=== PATIENT | male | born 1960 ===

== ENCOUNTER → 2018-12-14 21:48 | Outpatient (REF) | payer BC, SELFPAY ==
[2018-12-14 23:39] LABS: HIV 1 and 2 Antibody NEGATIVE (NEGATIVE)
[2018-12-14 23:50] LABS: Urine N gonorrhoeae NOT DETECTED
[2018-12-14 23:52] LABS: Urine Chlamydia NOT DETECTED
[2018-12-15 00:16] LABS: Hep C Virus Ab w/Reflex Quant NEGATIVE s/c (NEGATIVE)
[2018-12-16 18:29] LABS: HSV 2 IGG AB < 0.90 index (< 0.90); HSV1IGG < 0.90 index (< 0.90)
[2018-12-18 21:41] LABS: RPR Screen Nonreactive (Nonreactive)
== END ==
LOC: LAB 21:48
PROVIDERS: Visit Provider Family Medicine
DX: Z72.51 High risk heterosexual behavior (principal)
CPT/HCPCS: 36415; 86592; 86695; 86696; 86703; 86780; 86803; 87491; 87591